=== PATIENT | female | born 1995 | race Caucasian/White ===

== ENCOUNTER → 2016-11-16 | Outpatient (CLI) | payer OTHER ==
--- NOTE | 2016-11-16 18:59 | Diagnostic Imaging Report ---
PROCEDURE: US PELVIC (NON OB) INDICATION: Pelvic pain. TECHNIQUE: Multiple real time brown scale sonographic images were obtained of the pelvis transabdominally. CORRELATION STUDY: None. FINDINGS: UTERUS/ENDOMETRIUM: Uterus measures 7.5 x 4.5 x 3.5 cm. The uterus has an unremarkable appearance. The endometrium is normal in thickness measuring 9 mm. RIGHT OVARY: 2.7 x 4.0 x 2.2 cm. LEFT OVARY: 2.3 x 2.8 x 2.3 cm. Ovaries are limited in their assessment on transabdominal imaging. A few peripheral follicles not excluded. No definitive dominant cystic mass. Blood flow was unable to be detected on transabdominal imaging. This is likely largely attributed to overlying bowel gas and depth of the ovaries. No significant free pelvic fluid. IMPRESSION: 1. Overall generally unremarkable transabdominal pelvic ultrasound evaluation. Dictated by: Dictated on workstation # [id number]
--- NOTE | 2016-11-16 19:37 | Diagnostic Imaging Report ---
PROCEDURE: US Thyroid. INDICATION: Palpable lumps in the neck. These were reportedly larger a few weeks prior but have apparently shown interval decrease in size recently. TECHNIQUE: Grayscale sonographic images of the thyroid gland. CORRELATION STUDY: None. FINDINGS: RIGHT LOBE: Mildly elongated at 4.9 x 1.6 x 1.6 cm. There is normal echotexture about the right lobe. LEFT LOBE: Also mildly elongated at 5.4 x 1.2 x 1.8 cm. There is normal echotexture about the left lobe. In the area of palpable abnormality are three small what appear to be cervical lymph nodes. Largest is 16 x 9 x 23 mm. IMPRESSION: 1. Unremarkable appearing thyroid ultrasound examination. 2. Prominent cervical lymph nodes. Dictated by: Dictated on workstation # [id number]
== END ==
LOC: RAD 14:18
PROVIDERS: ATTEND Nurse Practitioner Family
DX: E28.2 Polycystic ovarian syndrome (principal); R10.2 Pelvic and perineal pain; E01.0 Iodine-deficiency related diffuse (endemic) goiter
CPT/HCPCS: 76536; 76856